=== PATIENT | female | born 1945 | race Caucasian/White ===

== ENCOUNTER 2022-05-26 10:56 | Outpatient (CLI) | payer MEDICARE, OTHER, SELFPAY ==
[2022-05-26 11:44] LABS: Hemoglobin A1C* 5.6 % (0-5.6)
[2022-05-26 12:08] LABS: Albumin* 4.5 g/dL (3.3-5.0); Chloride* 107 mmol/L (96-114); Sodium* 141 mmol/L (135-149)
[2022-05-26 12:09] LABS: Potassium* 5.1 mmol/L (3.6-5.1)
[2022-05-26 12:10] LABS: Cholesterol* 218 mg/dL (90-199)
[2022-05-26 12:11] LABS: Alanine Aminotransferase* 29 U/L (4-35); Alkaline Phosphatase* 65 U/L (40-150); Aspartate Amino Transferase* 23 U/L (12-35); Bilirubin Total* 0.4 mg/dL (0.1-1.5); Blood Urea Nitrogen* 20 mg/dL (7-30); Calcium* 9.4 mg/dL (8.4-10.6); Carbon Dioxide* 29 mmol/L (20-32); Creatinine* 0.8 mg/dL (0.5-1.5); Estimated Glomerular Filt Rate 77 ml/min; Glucose* 96 mg/dL (60-115); Triglycerides* 79 mg/dL (40-149)
[2022-05-26 12:12] LABS: HDL Cholesterol* 69 mg/dL (>=50); LDL Cholesterol Calculated 133 mg/dL (<100)
[2022-05-26 12:21] LABS: Vitamin D 25 Hydroxy* 40 ng/mL (30-80)
== END 2022-05-26 10:57 | disposition home or self-care (01) ==
PROVIDERS: PCP Family Medicine; Visit Provider Family Medicine
DX: R73.01 Impaired fasting glucose (principal); M85.80 Other specified disorders of bone density and structure, unspecified site; E78.5 Hyperlipidemia, unspecified; M25.50 Pain in unspecified joint; Z79.1 Long term (current) use of non-steroidal anti-inflammatories (NSAID)
CPT/HCPCS: 80053; 80061; 82306; 83036; 86617; 86618

== ENCOUNTER 2022-07-19 08:52 | Outpatient (CLI) | payer MEDICARE, OTHER, SELFPAY ==
--- NOTE | 2022-07-19 09:15 | MR_ITS ---
[facility] [address] [facility] [address] Phone:?[phone] Fax:?[phone] Referring Physician Information: Flakito aGlloway M.D. [address] [place] [address] Phone:?[phone] Fax:?[phone] Patient:Conrado Barbosa D.O.B:?1945 Sex:?Female Phone:? [facility] MRN:?[id number] Exam Date:?07/19/2022 ? EXAM: MRI of the LEFT KNEE, without contrast CLINICAL: Left knee pain. Evaluate for medial meniscal root tear. COMPARISONS: X-rays dated 05/26/2022. TECHNICAL: MR sequences of the left knee: sagittals: PD, PDFS coronals: PD, T2FS axials: PD, PDFS SEDATION: None. CONTRAST: None. FINDINGS: Ligaments: ACL: Intact and unremarkable. PCL: Intact and unremarkable. MCL: Intact and unremarkable. LCL: Intact and unremarkable. Posterolateral corner: Popliteus, biceps femoris, iliotibial band, and the popliteofibular ligament appear intact. Posteromedial corner: Semimembranosus, pes anserine tendons and posterior oblique ligament appear intact. Extensor mechanism: Patellar tendon: Intact, without tendinopathy. Quadriceps tendon: Intact, without tendinopathy. Retinacula: Medial and lateral retinacula are intact. Fat pads: Unremarkable infrapatellar Hoffa's, quadriceps and prefemoral fat pads. Patellofemoral joint: Patella: There is full-thickness chondral loss involving the medial patellar facet and patellar median ridge with mild underlying subchondral reactive edema. High-grade/full-thickness chondral loss also involves the far inferior patella. Trochlea: Mild heterogeneity and chondral thinning involving the trochlea. Medial compartment: Medial meniscus: There is complex tearing of the body and posterior horn extending into the posterior root as seen on sagittal series 6 images 8-14 and coronal series 8 image 17-22. There is approximately 5 mm of medial and 6 mm of inferior displacement of torn body segment meniscal tissue into the medial gutter. Medial cartilage: Grade 3 chondral thinning is seen to involve the far peripheral weightbearing medial femoral condyle. Mild chondral thinning involving the remainder of the medial compartment. Lateral compartment: Lateral meniscus: No evidence of discrete meniscal tear or meniscal displacement. Lateral cartilage: There is heterogeneity of the lateral tibial plateau cartilage with deep chondral fissuring involving the central lateral tibial plateau cartilage. Lateral femoral condyle cartilage is preserved. Knee joint: Effusion: Small left knee effusion. Intra-articular bodies:?No convincing bodies identified. Popliteal cyst: Small. Bones: No suspicious bone marrow signal alteration or fracture line. IMPRESSION: 1. Tearing of the medial meniscus as above, with displacement of torn body segment meniscal tissue into the medial gutter. 2. 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 3. Small joint effusion and small popliteal cyst. JCZ Electronically signed on 07/19/2022 2:13:00 PM by Sb Garcia D.O.
== END 2022-07-19 08:53 | disposition home or self-care (01) ==
LOC: MRI 08:54
PROVIDERS: PCP Family Medicine; Visit Provider Orthopaedic Surgery
DX: M25.562 Pain in left knee (principal); S83.207A Unspecified tear of unspecified meniscus, current injury, left knee, initial encounter; M94.262 Chondromalacia, left knee; M25.462 Effusion, left knee; M71.22 Synovial cyst of popliteal space [Baker], left knee
CPT/HCPCS: 73721

== ENCOUNTER 2022-08-11 10:04 | Outpatient (CLI) | payer MEDICARE, OTHER, SELFPAY ==
--- NOTE | 2022-08-11 10:15 | CRLHL7_ITS ---
For Patients: As a result of the Century Cures Act, medical imaging exams and procedure reports are released immediately into your electronic medical record. You may view this report before your referring provider. If you have questions, please contact your health care provider. BILATERAL SCREENING MAMMOGRAM WITH COMPUTER-AIDED DETECTION TECHNIQUE: CC and MLO views were obtained. These mammographic images have been obtained using full-field digital technique. These mammographic images were interpreted with the benefit of computer-aided detection. COMPARISON FILM: 09/25/2020, 05/05/2017, 01/11/2019. FINDINGS: There are scattered areas of fibroglandular density IMPRESSION: There is no radiographic evidence for malignancy. ASSESSMENT: BI-RADS Category 1: Negative RECOMMENDATION: Routine screening mammogram in 1 year. A lay language report of this examination will be provided to the patient. Job Puckett M.D. Diagnostic Radiologist [email or web address] MARYSOL/Dictated by: Job Puckett MD @ 08/11/2022 11:47:00 AM (Electronically Signed)
== END 2022-08-11 10:05 | disposition home or self-care (01) ==
LOC: MAMMO 10:04
PROVIDERS: PCP Family Medicine; Visit Provider Family Medicine
DX: Z12.31 Encounter for screening mammogram for malignant neoplasm of breast (principal)
CPT/HCPCS: 77067

== ENCOUNTER 2022-09-08 14:30 | Outpatient (RCR) | payer MEDICARE, OTHER, SELFPAY ==
--- NOTE | 2022-07-07 16:10 | PT.OPEX ---
PT [facility] Eval PT [facility] Out[facility] Eval Start: 07/07/22 13:16 Freq: Status: Active Protocol: Document 07/07/22 13:16 YONY (Rec: 07/07/22 16:01 YONY [id number]) E-signed By Elsa Miranda Physical Therapy Outpatient Evaluation Insurance Information Recert Due Date 10/05/22 Insurance Name Medicare B Medical Diagnosis Cervicalgia Treating Diagnosis Neck pain with mobility limitations that interferes w patient's ability to sleep Referring MD Lyn Bryant MD Subjective Subjective Patient presents to PT for evaluation and treatment for neck pain. She has done PT for her neck previously, which improved her ROM but did not significantly affect her pain. She has continued to do some of the exercises from that PT treatment. She's hoping to improve her pain as well as her ability to hold her head steady. She had a fall in November 2020 in which she fell backwards w/o hitting her head that she feels is related; she had no neck pain before the fall. She now has trouble with riding her stationary bike due to her neck, in addition to knee pain that is preventing her from walking much. She regrets that she is not getting much exercise now; she has historically been a hiker, biker, etc. She has a hard time sleeping due to neck pain, despite trying many different pillows; her neck pain is waking her up 3-4x/ night. She now sleeps on her side with no pillow at all. She has found a position where she cradles her head/neck with her arms, but she is worried about how this will affect her shoulders. When she wakes, her neck is very stiff . She has been trying to make sure she drinks lots of water to help with the arthritis. Her family has noticed a side- to-side head bobble almost like she's nodding off to sleep, which she thinks happens mostly at the end of the day. She thinks it's mostly bobbling to the right. X-ray impression from 05/26/22 : Mild degenerative disc disease C5-C7. Severe facet degeneration on the right at C5-6 and on the left at C4-5. Pain Comments Worst: 5-6/10 (describes as uncomfortable) Best: 1/10 (up and moving around w head in midline) Ags: looking down at iPad or handwork, holding head steady for a long period especially if looking down, rolling over in bed Eases: Advil, Tylenol, getting up and walking around, putting her shoulders back and sitting up tall, taking a break from aggravating activity Occupation retired Preferred Name GUERDA Objective Other/Pertinent Objective Posture: Slightly rounded and elevated shoulders Balance: Able to have good sitting posture when attending to it, tends to lean into backrest and rest into flexion throughout spine Cervical AROM assessed. All motions found to be at least somewhat irritating, with L sidebending and L rotation being the worst initially, but subsequently R rotation seemed to be quite bothersome. Attempted to assess cervical PROM, but pt unable to relax Shoulder AROM assessed and found to be painless and unlimited. However, holding a curling iron for a prolonged period is tiring. Denies numbness/tingling anywhere. MMT screen of B UEs performed and found to be grossly 5/5. Abduction created bilateral neck pain in upper trap region . Special tests performed and found to be negative unless otherwise noted: Spurling Deep neck flexor endurance test (40 sec is normal): 50 sec (R sided pain w lift and twist R) Upper limb tension test on R Manual cervical traction trialed and found to provide minimal relief of neck pain, but it was unclear whether this was from distraction or from pressure to neck/ paraspinals Tenderness to palpation: R paraspinals at approximately the C3/4 level. No tenderness to B occipitals, upper traps, pecs, scalenes, or SCMs. Patient's pain was quite irritable. Assessment Assessment/Impression Guerda presents to PT today with complaints of neck pain and stiffness with occasional head bobbles that happen later in the day. Patient reports that she fell backward from standing in November of 2020; to avoid hitting her head, she worries that she strained her neck muscles or ligaments. She has had neck pain ever since and was very concerned about the findings on a recent xray. Notable findings today include limitations and pain/ stretch in all cervical motions, good strength and endurance in deep neck flexors , and negative special tests for radiculopathy. Patient was tender on palpation to her R paraspinals at approximately the C3/4 level, and pointed to her bilateral paraspinals and upper traps throughout today' s session as the source of pain/stretching sensation. PT today focused on evaluating the patient's strength and mobility, educating her about the x-ray findings, and instructing her in a preliminary home exercise program. Patient will benefit from continued physical therapy to build strength and mobility, gain confidence with independent management of her condition, and improve her ability to participate in her preferred activities. Cosigned: [place] [address] Primary Functional Limitations Interrupted sleep Difficulty with looking at iPad, cross-stitch Plan of Care Rehabilitation Potential Good Physical Therapy Goals In 6-8 weeks: 1. Patient will be independent with home exercise program to promote independent management of symptoms. 2. Patient will report waking 2 or fewer times per night due to neck pain. 3. Patient will rate her pain at its worst as a 4/10 or less when performing recreational activities such as cross- stitch. 4. Patient will report a 2+ or higher on the Global Rating of Change Scale. Coordination/Communication With Referral Source Treatment Plan/Direct Interventions Electrical Stimulation,Heat, Ice/Cold/Vasopneumatic,Joint Mobilization,Manual Therapy, Neuromuscular Re-ed,Self-Care/ Home Management,Therapeutic Activities,Therapeutic Exercises,Ultrasound Frequency/Duration 1x/week for up to 8 weeks Patient Will Be Discharged From Therapy Completion of LTG(s), Independent w/HEP Evaluation Billing Untimed Code Treatment Minutes 43 PT Eval No Charge No Complexity Moderate Certification Information Initial Certification Date 07/07/22 Ending Certification Date 10/05/22 Provider Signature Shows Agreement With POC & Medical Necessity Physician Signature & Date Requested Please Sign/Date Here Physician Comment/Change : Physician NPI Number # Student Supervision Licensed PT Directed/Approved Treatment, Reviewed POC with Patient,Made Contact with Patient, Participated in Treatment Documentation Reviewed By Support Specialist Yes
== END 2022-11-22 09:21 | disposition home or self-care (01) ==
PROVIDERS: PCP Family Medicine; Visit Provider Family Medicine
DX: M54.2 Cervicalgia (principal); G89.29 Other chronic pain; Z74.09 Other reduced mobility; G47.8 Other sleep disorders; Z51.89 Encounter for other specified aftercare
CPT/HCPCS: 97110; 97112; 97140; 97162; 97530

== ENCOUNTER 2022-09-09 06:17 | Day surgery (SDC) | payer MEDICARE, OTHER, SELFPAY ==
[2022-09-09] VITALS (11 sets, daily range): BP systolic 110–144; BP diastolic 55–82; PULSE 55–75; RESP 16–20; TEMP 36.1–37.2; O2SAT 92–100; BMI 30.4
--- NOTE | 2022-09-09 06:33 | SUR.PREOP ---
home covid test negative
[2022-09-09] MEDS: LACTATED RINGERS 1000 ML 1,000 ML 100 ML IV ×2 (07:00→08:40)
[2022-09-09] MEDS: SODIUM CHLORIDE 0.9 % (FLUSH) 10 ML SYRINGE IVF (07:01)
[2022-09-09] MEDS: CEFAZOLIN 2 GM INJ IVP (07:50)
--- NOTE | 2022-09-09 08:24 | PM.ORPRC ---
Procedure Note Date of procedure: 09/09/22 Procedure: PREOPERATIVE DIAGNOSIS: Left knee medial meniscus tear POSTOPERATIVE DIAGNOSIS: Left knee medial meniscus tear NAME OF OPERATION: Left knee arthroscopic partial medial meniscectomy SURGEON: Flakito Galloway MD WEBSPHERE PORTAL DEVELOPER: ALEXANDRA Shannon ANESTHESIA: Spinal ESTIMATED BLOOD LOSS: 0 mL COMPLICATIONS: None SPECIMENS: None DRAINS: None PREOPERATIVE ANTIBIOTICS: Ancef 2 gram INDICATIONS: The patient is a 76-year-old with a history of left knee medial pain. MRI scan is consistent with a medial meniscus tear. Despite appropriate nonoperative management, including activity modification, antiinflammatories, [id number] pain medication, bracing, physical therapy, and injections they continue to have pain and disability. Operative intervention was offered. The risks, benefits and expected outcomes were discussed in detail. These included but were not limited to: Infection, bleeding, injury to blood vessel or nerve, venous thromboembolism. All questions were answered to their satisfaction. PROCEDURE: Spinal anesthesia was administered. The patient was placed supine on the operating room table. The left lower extremity was prepped and draped in the usual sterile fashion. The limb was exsanguinated with the Westley bandage. The pneumatic tourniquet was inflated to 300 mmHg. A standard anterolateral portal was established. The arthroscope was introduced. The working portal was established anteromedially. Diagnostic arthroscopy was performed with findings as follows: The suprapatellar pouch is normal. Articular surface on the patella shows diffuse grade 1/2 change. Articular surface on the trochlea shows diffuse grade 2 change. The medial gutter is normal. The medial compartment shows diffuse grade 2 change on the medial femoral condyle and medial tibial plateau. The medial meniscus has a complex degenerative tear of the midbody, into the posterior horn. This primarily consists of a parrot-beak tear with an anteriorly based unstable flap. There is undersurface horizontal cleavage tearing of the posterior horn. The notch shows the ACL to be intact. The lateral compartment shows normal articular cartilage on the lateral femoral condyle and lateral tibial plateau. The lateral meniscus is normal. The lateral gutter is normal. The posterior horn of the medial meniscus was debrided to a stable base using a combination of baskets and shaver through both portals. Arthroscopic instruments were removed, the portal sites were Steri-Stripped closed, the knee was infiltrated with 30 mL of 0.25% Marcaine without epinephrine. A dry dressing was applied, the tourniquet was released. Sponge and needle counts were correct x 2. The patient tolerated the procedure well. There were no apparent complications. They were carefully transferred to the hospital bed and taken to the postanesthesia care unit in satisfactory condition. PLAN: The patient will be discharged to home. They may weightbear as tolerates. Range of motion will be unrestricted. They will follow up in the office next week for a wound check.
[2022-09-09] MEDS: BUPIVACAINE 0.25% 30 ML INJECTION (08:26)
--- NOTE | 2022-09-09 08:36 | W.ANESCHARGE ---
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
[2022-09-09] MEDS: OxyCODONE/APAP 5-325 TABLET 1 TAB PO (10:00)
== END 2022-09-09 10:13 | disposition home or self-care (01) ==
PROVIDERS: PCP Family Medicine; Visit Provider Orthopaedic Surgery
PROC: (CPT 29870; principal; 2022-09-09 07:30)
DX: M23.222 Derangement of posterior horn of medial meniscus due to old tear or injury, left knee (principal)
CPT/HCPCS: 29881; 01400; 99100; A9270; J0690; J2250; J2704; J3010; J3490; J7120

== ENCOUNTER 2022-10-07 12:18 | Outpatient (CLI) | payer MEDICARE, OTHER, SELFPAY ==
--- NOTE | 2022-10-07 13:51 | W.ANESCHARGE ---
Anesthesia Charges Start Date/Time Anesthesia Start Date: 10/07/22 Anesthesia Start Time: 13:10 Stop Date/Time Anesthesia Stop Date: 10/07/22 Anesthesia Stop Time: 13:45
--- NOTE | 2022-10-07 14:22 | W.ANESCHARGE ---
Anesthesia Charges Start Date/Time Anesthesia Start Date: 10/07/22 Anesthesia Start Time: 13:10 Stop Date/Time Anesthesia Stop Date: 10/07/22 Anesthesia Stop Time: 13:45 Summary Extremes of Age - Over 70 or under 1: MDA
== END 2022-10-07 12:19 | disposition home or self-care (01) ==
PROVIDERS: PCP Family Medicine; Visit Provider Surgery
DX: Z12.11 Encounter for screening for malignant neoplasm of colon (principal); K63.5 Polyp of colon; K62.1 Rectal polyp; Z86.010 Personal history of colon polyps
CPT/HCPCS: 45385; 811; 88305; 99100; J2704

== ENCOUNTER 2023-04-20 08:55 | Outpatient (CLI) | payer MEDICARE, OTHER, SELFPAY ==
--- NOTE | 2023-04-20 09:00 | CRLHL7_ITS ---
For Patients: As a result of the Cures Act, medical imaging exams and procedure reports are released immediately into your electronic medical record. You may view this report before your referring provider. If you have questions, please contact your health care provider. Indication: Left shoulder pain. Technique: Left shoulder 3 views. Comparison: None. Findings: Deformity of the humeral head at the greater tuberosity noted. Spurring at the acromioclavicular joint. Possible lucency associated with the greater tuberosity. No glenohumeral dislocation. Intact visualized ribs. Impression: Mildly displaced fracture of the greater tuberosity. Possible underlying bony lesion. CT recommended. Dictated by Job Puckett MD @ 04/20/2023 10:13:14 AM (Electronically Signed)
== END 2023-04-20 08:56 | disposition home or self-care (01) ==
PROVIDERS: PCP Family Medicine; Visit Provider Family Medicine
DX: M25.512 Pain in left shoulder (principal); T14.8XXA Other injury of unspecified body region, initial encounter
CPT/HCPCS: 73030

== ENCOUNTER 2023-05-24 07:31 | Outpatient (CLI) | payer MEDICARE, OTHER, SELFPAY ==
--- OUTSIDE RECORDS SUMMARY | 2023-05-26 12:19 | XMS_ITS | Continuity of Care Document ---
Author Name Unknown Organization [facility] Address [address] [place] [address] Phone Care Team Providers Care Driller Hand Name Role Phone Duy DUKES, PhD, Redd Unavailable Unavai lable Allergies, Adverse Reactions, Alerts Substance Reaction Status Criticality No Known Allergies Active No Inform ation Medications Medication Instructions Dosage Effective Dates (start - stop) Status Comments ADVAIR HFA (unknown strength) Not Available - Active Procedures Procedure Date Office/Outpatient Visit,[facility] [place] 2022 Advance Directives Directive Yes / No Effective Date File Name No Information Encounters Encounter Description Practice Location Reason(s) For Visit Diagnoses Date Provider Providers Copied on Encounter [facility], [address], [place], [place], [id number], [place] tel:[phone] No Information Duy Rainey. [facility] [place], [address] [facility] [address], [place], [address], [place]. tel:[phone] Office/Outpat ient Visit,[facility], [address], [place], [place], [id number], [place] tel:[phone] [facility] [place] [facility] Duy Rainey. [facility], [address], [place], [address], [place]. tel:[phone] Referring Provider: Lyn Almodovar[address], [address]. tel:[phone] Family History Family Member Type Diagnosis Age At Onset No Information Payers Payer name Insurance type Covered republican ID Authoriza titaylor(s) [facility] [place] [id number] Social History Type Description Quantity Date Captured Comments Sex Female Smoking Status No Information Chief Complaint And Reason For Visit No Information Reason For Referral Reason For Referral No Information History Of Present Illness Encounter Date Complaint History Of Prese nt Illness No Information Functional Status Date Functional Assessmen t No Information Instructions Date Instruction Additional Infor mation No Information Assessments Type Assessment Date No Information Patient Care Teams Name Effective Dates (start - stop) Status Members No Information
== END 2023-05-24 07:32 | disposition home or self-care (01) ==
LOC: NFLDREF 05-26 12:17
PROVIDERS: PCP Family Medicine; Referring Provider Family Medicine; Visit Provider Family Medicine
DX: E78.2 Mixed hyperlipidemia (principal); M19.90 Unspecified osteoarthritis, unspecified site; M85.80 Other specified disorders of bone density and structure, unspecified site
CPT/HCPCS: 80053; 80061; 82306

== ENCOUNTER 2023-07-06 14:17 | Outpatient (CLI) | payer MEDICARE, OTHER, SELFPAY ==
--- OUTSIDE RECORDS SUMMARY | 2023-07-06 14:21 | XMS_ITS | Continuity of Care Document ---
Author Name Unknown Organization [facility] Address [address] [place] [address] Phone Care Team Providers Care Pacu Rn Name Role Phone Duy DUKES, PhD, Redd Unavailable Unavai lable Allergies, Adverse Reactions, Alerts Substance Reaction Status Criticality No Known Allergies Active No Inform ation Medications Medication Instructions Dosage Effective Dates (start - stop) Status Comments ADVAIR HFA (unknown strength) Not Available - Active Procedures Procedure Date Office/Outpatient Visit,[facility] [place] Directives Directive Yes / No Effective Date File Name No Information Encounters Encounter Description Practice Location Reason(s) For Visit Diagnoses Date Provider Providers Copied on Encounter [facility], [address], [place], [place], [id number], [place] tel:[phone] No Information Duy Rainey. [facility] [place], [address] [facility] [address], [place], [address], [place]. tel:[phone] Office/Outpat ient Visit,[facility], [address], [place], [place], [id number], [place] tel:[phone] [facility] [place] [facility] Duy Rainey. [facility], [address], [place], [address], [place]. tel:[phone] Referring Provider: Lyn Almodovar[address], [address]. tel:[phone] Family History Family Member Type Diagnosis Age At Onset No Information Payers Payer name Insurance type Covered green party ID Authoriza titaylor(s) [facility] [place] [id number] Social History Type Description Quantity Date Captured [...]
--- NOTE | 2023-07-06 14:30 | CRLHL7_ITS ---
For Patients: As a result of the Century Cures Act, medical imaging exams and procedure reports are released immediately into your electronic medical record. You may view this report before your referring provider. If you have questions, please contact your health care provider. DXA BONE MINERAL DENSITY STUDY Reason for exam: Osteopenia. Current height (in): 64. Weight (lb): 175. Menopause age: 54. Ethnicity: White. 1. Have you had a previous hip or vertebral fracture? No. 2. Have you had any fractures during your adult life which did not result from significant trauma (e.g., auto accident)? Yes. 3. Did either of your parents have a hip fracture? No. 4. Do you smoke? No. 5. Have you ever taken Glucocorticoids? Yes. 6. Do you have rheumatoid arthritis? No. 7. Do you have secondary osteoporosis? No. 8. Do you drink 3 or more alcoholic drinks per day? No. 9. Are you being treated for osteoporosis? No. 10. Have you ever taken any of the following medications: Actonel, Evista, Fosamax, Miacalcin, Reclast, Boniva, Forteo, HRT (i.e. estrogen/hormone therapy), Protelos, Prolia, Vitamin D, Calcium, other ??? please specify. ANSWER: Yes, Vitamin D, calcium. 11. Do you have any of the following medical conditions: Anorexia or bulimia, asthma or emphysema, end stage renal disease, hyperparathyroidism, any seizure disorders, cancer, inflammatory bowel diseases, hysterectomy, other ??? please specify. ANSWER: Yes, asthma or emphysema, osteopenia. 12. What was your maximum height (inches)? 64. 13. Do you perform weight bearing exercise regularly? Yes. 14. Do you regularly consume dairy products? Yes. 15. Do you drink caffeinated beverages? Yes. 16. At what age did your period start? 17. 17. Are you premenopausal? No. 18. How many full term pregnancies have you had? 2. 19. Have you ever missed your period for more than 6 months in a row (not including or menopause)? No. TECHNIQUE: Bone mineral density study was performed using the [employer]. FINDINGS: The results of the study expressed as bone mineral density (BMD) are as follows: Lumbar spine L1 to L4: BMD: 0.975 g/cm2. T-score: -0.7. Z-score: 1.8. Neck Left: BMD: 0.658 g/cm2. T-score: -1.7 . Z-score: 0.4. Right: BMD: 0.654 g/cm2. T-score: -1.8 . Z-score: 0.4. Total Left: BMD: 0.888 g/cm2. T-score: -0.4. Z-score: 1.4. Right: BMD: 0.855 g/cm2. T-score: -0.7. Z-score: 1.1. IMPRESSION: Osteopenia. *Comparison exams done prior to 11/2019 were performed on different unit, [employer]. COMPARISON: Compared with scan of 04/08/2021, the bone mineral density has decreased by 0.2 percent at the spine and decreased by 0.5 percent at the hip. FRAX 10-year Fracture Risk Major Osteoporotic Fracture: 27 percent Hip Fracture: 6.7 percent Reported Risk Factors: [place] () Neck BMD=0.654, BMI=30.0, previous fracture, glucocorticoids Job Puckett M.D. Diagnostic Radiologist [email or web address] SP/Dictated by: Job Puckett MD @ 07/06/2023 3:49:00 PM (Electronically Signed)
== END 2023-07-06 14:18 | disposition home or self-care (01) ==
LOC: RAD 14:20
PROVIDERS: PCP Family Medicine; Visit Provider Family Medicine
DX: M85.80 Other specified disorders of bone density and structure, unspecified site (principal); M85.89 Other specified disorders of bone density and structure, multiple sites
CPT/HCPCS: 77080

== ENCOUNTER 2023-08-26 09:00 | Outpatient (RCR) | payer MEDICARE, OTHER, SELFPAY ==
--- NOTE | 2023-04-05 17:01 | PT.OPEX ---
PT [facility] Outpatient Eval PT [facility] Outpatient Eval Start: 04/05/23 13:00 Freq: Status: Active Protocol: Document 04/05/23 13:00 AMS (Rec: 04/05/23 16:57 AMS [id number]) E-signed By Jina Willard PT Physical Therapy Outpatient Evaluation Insurance Information Recert Due Date 06/29/23 Insurance Name Medicare B Medical Diagnosis Non-displaced fracture of greater tuberosity of left humerus 01/22/23 Left rotator cuff tendinitis Left AC joint arthritis Treating Diagnosis Left shoulder stiffness Left shoulder pain Muscle weakness Referring MD Lyn Bryant Subjective Subjective She fractured arose in January by tripping over an object in a dark house. She fractured the left humerus. This was at her summer cabin in [place] . She did see on Ortho who did do x-ray and MRI. They had told her she does not need any surgery. She has been going to physical therapy and it is slowly getting better. She would like to have a referral to physical therapy. She did not have a follow-up with orthopedic surgeon there. Patient, left-hand dominant, presents to physical therapy 10 weeks s/p left greater tuberosity humeral fracture after a fall onto an outstretched arm on 01/22/23. She tripped on a potting bench while carrying two plants, and fell onto her left arm. She did PT in [place] for 8 visits, as this was where she was living at her cabin until 1.5 weeks ago. This was very helpful thus far, but she is worried she is backsliding since not going for 1.5 weeks due to moving. Still has not recovered her full range of motion/strength, noting functional limitations/ aggravation with lifting, reaching, carrying, and cleaning. MRI was done recently, which patient states showed partial tear of supraspinatus, biceps tendon irritation, and healing fracture WNL. Easing factors include ice after exercises, as well as heat and rest. She takes OTC pain meds as needed, which helps. Also notes scapular retractions decrease her pain along with dangling her left arm over edge of bed on her side. Goals are decreased pain, return to yoga , gadening, and housework, and walking the dog, which she does daily but has had to adapt and use right UE. She enjoys sewing and knitting as well as staying busy, although retired. Previously doing yoga 3x/week, but has not since injury. PMH significant for asthma and cervical pain; saw Aster previously here for her neck pain. She is wondering what exercises she can safely do. Pt notes she has had 2 other falls this year when she wasn't paying attention. Not worried about her balance. Current HEP: supine AAROM flexion and press, ER with dowel, scapular retractions, AAROM standing with dowel, ER with 1-2 lb weight, isometric IR/ER walkouts with band, shoulder punches supine, rows in standing, valerio system x 100 reps each, wall slides - all 2x/day for 10 reps. Pain Comments 0/10 at rest, 6/10 at worst Date of Last Physician Visit 04/01/23 Current Work Status Retired Preferred Name Guerda Precautions Treatment Precautions/Contraindications Left humeral fx 01/22/23, asthma No other restrictions Objective Other/Pertinent Objective CERVICAL AROM Flexion/extension/sidebending: WFL Rotation right: 45 deg Rotation left: 50 deg SHOULDER AROM (standing/supine ) Flexion: R 170 L 130/130* Abduction: R 170 L 90/160* Internal Rotation: R T4 L / L5 * External Rotation (0 deg abd): R 60 L 40* * limited by pain lateral shoulder SHOULDER PROM Same as supine AROM with pain end range NECK/SHOULDER MMT: Shoulder flexion: R 5/5 L 4/5 Shoulder abduction: R 5/5 L 4/ 5 Shoulder External Rotation at 0 deg: R 5/5 L 4/5 Shoulder Internal Rotation at 0 deg: R 5/5 L 4/5 Elbow flexion: R 5/5 L 4/5 Elbow extension R 5/5 L 5/5 SCAPULAR MECHANICS Did not assess Automobile Service Writer strength: Grossly within normal limits SPECIAL TESTS Deferred JOINT MOBILITY/PALPATION Mild tenderness to palpation over anterior lateral shoulder /short head of biceps insertion TX: Patient was educated on anatomy, physiology as it relates to current condition and HEP with use of handout/ [employer]. Patient verbalizes understanding and agrees with POC/goals Patient was instructed in the following exercises to improve strength, tissue tolerance, and/or mobility with verbal/ tactile cues as needed: Access Code: [email or web address] URL: [email or web address] Date: 04/05/2023 Prepared by: Jina Willard Program Notes Comfortable range of motion - no need to push past pain! Exercises - Standing shoulder flexion wall slides - 1 x daily - 7 x weekly - 3 sets - 10 reps - Standing Shoulder Abduction AAROM with Dowel - 1 x daily - 7 x weekly - 3 sets - 10 reps - Sidelying Shoulder Abduction - 1 x daily - 7 x weekly - 3 sets - 10 reps - Standing Shoulder External Rotation AAROM with Dowel - 1 x daily - 7 x weekly - 3 sets - 10 reps Patient to bring HEP list from previous PT at next session. Functional Test Performed & Score Quick DASH: 56.8/100 = 56.8% Assessment Assessment/Impression Pt is a 77 -year-old female who presents 10 weeks s/p left greater tuberosity humeral fracture due to FOOSH injury after transfer of care from her physical therapist in [place] (moved back from [facility] 1.5 weeks ago). MRI also reportedly showing rotator cuff/biceps involvement/ partial supraspinatus tear. On exam, patient also demonstrates notable objective findings including limited ROM due to pain and decreased strength, leading to difficulties with housework, gardening, walking her dog, playing piano, reaching, lifting, sleeping, and carrying. Especially demonstrates weakness with active shoulder abduction due to nature of nondisplaced fracture location. Received previous physical therapist's notes for continuity of care. Patient is appropriate for skilled physical therapy services to address the above deficits. Pt was agreeable with plan of care and goals established. Primary Functional Limitations housework, gardening, walking her dog, playing piano, reaching, lifting, sleeping, and carrying Plan of Care Rehabilitation Potential Good Physical Therapy Goals In 2 sessions: Pt will demonstrate consistent HEP compliance to ensure progress in reaching established goals during course of care. In 8-10 sessions: Pt will demonstrate full and pain-free AROM of shoulder for improved ability to perform ADLs. Pt will report <2/10 pain with all activities for improved ability to perform recreational leisure activities. Pt will sleep, including on shoulder, with waking 0-1 times per night. Pt will demonstrate >4/5 strength for all major muscle groups of upper extremity for improved ability to return to yoga class. Coordination/Communication With Referral Source Treatment Plan/Direct Interventions Joint Mobilization,Manual Therapy,Neuromuscular Re-ed, Self-Care/Home Management, Therapeutic Activities, Therapeutic Exercises Frequency/Duration 1x/week for 8-10 sessions Patient Will Be Discharged From Therapy Completion of LTG(s), Independent w/HEP, Independently Progressing Evaluation Billing Untimed Code Treatment Minutes 30 Complexity Moderate Certification Information Initial Certification Date 04/05/23 Ending Certification Date 06/29/23 Provider Signature Shows Agreement With POC & Medical Necessity Physician Signature & Date Requested Please Sign/Date Here Physician Comment/Change : Physician NPI Number #
--- NOTE | 2023-07-12 12:21 | PT.OPDNX ---
PT [facility] Outpatient Daily Note PT [facility] Outpatient Daily Note Start: 04/05/23 13:00 Freq: Status: Active Protocol: Document 07/12/23 08:12 AMS (Rec: 07/12/23 12:21 AMS [id number]) E-signed By Jina Willard, PT PT OP Daily Progress Note Visit Information Note Type Daily Note,Recert/Progress Note Visit Number [id number] Insurance Information Recert Due Date 09/22/23 Insurance Name Medicare B Medical Diagnosis Non-displaced fracture of greater tuberosity of left humerus 01/22/23 non-operative Left rotator cuff tendinitis Left AC joint arthritis Treating Diagnosis Left shoulder stiffness Left shoulder pain Muscle weakness Referring MD Lyn Bryant Subjective Subjective Patient states her shoulder has been doing well. She has done 2 yoga classes this week, which went well overall but had more difficulty with downward dog/full body planks due to feeling of muscle aching in left shoulder, along with minor pain noted with T' s and goal post arm stretches on her back. She states she was able to carry her dog's food bag up the stairs for the first time since injury using both arms. She is off all pain meds and has been for some time now. Pain Comments 0/10 at rest, 2/10 at worst Preferred Name Guerda Precautions Treatment Precautions/Contraindications Left humeral fx 01/22/23, asthma, osteopenia, hyperlipidemia No other restrictions Home Exercise Home Exercise Comments Access Code: [email or web address] URL: [email or web address] Date: 07/12/2023 Prepared by: Jina Willard Program Notes Minimum of 150 minutes of moderate intensity aerobic exercise (walking, biking, swimming, hiking ) per week, along with 2-3 days of resistance training for full body major muscle groups for strengthening (legs, hips, back, abdomen, chest, shoulders, and arms). It may take time to gradually build up to the recommended levels as appropriate.Downward dog to cobra, 2 x 5 reps, 3x/week Exercises - Standing Shoulder Internal Rotation Stretch with Towel - 1 x daily - 7 x weekly - 2 sets - 15-20 reps - 3-5 seconds hold - Shoulder Internal Rotation with Resistance - 1 x daily - 4 x weekly - 2 sets - 10 reps - blue hold - Standing Single Arm Shoulder Abduction with Resistance - 1 x daily - 4 x weekly - 2 sets - 10 reps - green band - Standing Single Arm Shoulder External Rotation in Abduction with Anchored Resistance - 1 x daily - 4 x weekly - 2 sets - 10-12 reps - red band hold - Standing Shoulder Horizontal Abduction with Resistance - 1 x daily - 4 x weekly - 2 sets - 10 reps - Single Arm Overhead Triceps Extension - 1 x daily - 4 x weekly - 2 sets - 8-10 reps - green band or 5 lbs weight - Standing Bicep Curls with Resistance - 1 x daily - 4 x weekly - 2 sets - 10 reps - 8 lbs or double blue hold - Standing Bent Over Shoulder Row - 1 x daily - 4 x weekly - 2-3 sets - 10-12 reps - 8 lbs weight Objective Other/Pertinent Objective SHOULDER AROM (standing) Flexion: R 150 L 150 Abduction: R 165 L 165 Internal Rotation: R T4 L: L2 w/ assist from R External Rotation (0 deg abd): R 55 L 55 External rotation (90 deg abd) : 82 R, 75 L Previously: NECK/SHOULDER MMT: Shoulder flexion: R 5/5 L 4+/5 Shoulder abduction: R 5/5 L 4+ /5 Shoulder External Rotation at 0 deg: R 5/5 L 4+/5 Shoulder Internal Rotation at 0 deg: R 5/5 L 4+/5 Elbow flexion: R 5/5 L 4+/5 Elbow extension R 5/5 L 5/5 JOINT MOBILITY/PALPATION Mild tenderness to palpation over anterior lateral shoulder /short head of biceps insertion Functional Test Performed & Score Quick DASH: 56.8/100 = 56.8% ( initial eval) Patient Instructed in Risks/Benefits Yes Therapeutic Exercise Therapeutic Exercise Minutes (minutes) 30 Therapeutic Exercise: To Restore Patient was instructed in the Functional Status following exercises to improve strength, tissue tolerance, and/or mobility with verbal/ tactile cues as needed: - Pulleys, flexion and abduction, x 3 min - Standing ER stretch at 90 deg abd, 1 x 30 sec - Bent over rows, 6 lb DBs, 1 x 12; 7 lbs, 1 x 12 reps; 8 lbs, 1 x 12 reps - ER at 90 deg abd, 2 x 15, yellow, red TB - Banded horizontal abduction with blue TB, 1 x 15 reps - Quadruped shoulder taps 1 x 10 reps B - Quadruped unilateral shoulder plank 2 x 30 sec L, 1 x 30 R - Reviewed HEP, answered pt questions, reviewed pt progress Therapeutic Activity Therapeutic Activity Minutes (minutes) 8 Therapeutic Activities Comments -Tennis ball throws at target to simulate throwing chucket for dog 1 x 15 reps -ER at 90 deg abd isometric carries, 5 lbs, 4 x 50 ft -Downward dog to cobra pose, 2 x 5 reps Treatment Minutes Timed Code Treatment Minutes 38 Total Treatment Time 38 Billing Units Therapeutic Activity Units 1 Therapeutic Exercise Units 2 Assessment/Impression Assessment/Impression Pt is 24.5 weeks s/p left proximal humeral fracture and is nearing her baseline level of function in terms of strength and mobility. Pain is now intermittent and decreased in severity/ frequency. Range of motion is full and pain-free with exception of decreased internal rotation to L2, although this is improving. However, patient continues to be limited in activities such as yoga, throwing the chucket for her dog, and carrying heavier objects due to decreased strength of involved shoulder, although this is improving. She has made great progress in her range of motion, pain levels and function, activity tolerance, and rotator cuff/scapular strength since starting therapy, but will continue to benefit from skilled PT services to facilitate full return to desired daily activities. Plan of Care Physical Therapy Goals In 2 sessions: Pt will demonstrate consistent HEP compliance to ensure progress in reaching established goals during course of care. MET In 8-10 sessions: Pt will demonstrate full and pain-free AROM of shoulder for improved ability to perform ADLs. MET, except internal rotation Pt will report <2/10 pain with all activities for improved ability to perform recreational leisure activities.MAKING GOOD PROGRESS Pt will sleep, including on shoulder, with waking 0-1 times per night. MET 06/15/23 Pt will demonstrate >4+/5 strength for all major muscle groups of upper extremity for improved ability to return to yoga class. MAKING GOOD PROGRESS Daily Plan of Care Continue per POC Daily Plan of Care Comments Left UE ROM/strengthening, adapt HEP Recertification Information Initial Certification Date 04/05/23 Recertification Start Date 06/29/23 Recertification Due Date 09/22/23 Reasons to Continue Skilled Therapy Pt is 24.5 weeks s/p left proximal humeral fracture and is nearing her baseline level of function in terms of strength and mobility. Pain is now intermittent and decreased in severity/ frequency. Range of motion is full and pain-free with exception of decreased internal rotation to L2, although this is improving. However, patient continues to be limited in activities such as yoga, throwing the chucket for her dog, and carrying heavier objects due to decreased strength of involved shoulder, although this is improving. She has made great progress in her range of motion, pain levels and function, activity tolerance, and rotator cuff/scapular strength since starting therapy, but will continue to benefit from skilled PT services to facilitate full return to desired daily activities. Rehabilitation Potential Excellent Continued Plan of Care and Interventions Therapeutic activities, therapeutic exercise, neuromuscular re-education, manual therapy Provider Signature Shows Agreement With POC & Medical Necessity
== END 2023-08-26 13:02 | disposition home or self-care (01) ==
PROVIDERS: PCP Family Medicine; Visit Provider Family Medicine
DX: S42.255A Nondisplaced fracture of greater tuberosity of left humerus, initial encounter for closed fracture (principal); M67.814 Other specified disorders of tendon, left shoulder; M13.812 Other specified arthritis, left shoulder; M25.612 Stiffness of left shoulder, not elsewhere classified; M25.512 Pain in left shoulder; M62.81 Muscle weakness (generalized); Z51.89 Encounter for other specified aftercare
CPT/HCPCS: 97110; 97140; 97162; 97530

== ENCOUNTER 2024-04-10 06:22 | Day surgery (SDC) | payer MEDICARE, OTHER, SELFPAY ==
[2024-04-10] VITALS (9 sets, daily range): BP systolic 135–152; BP diastolic 58–91; PULSE 67–87; RESP 18; TEMP 36.4; O2SAT 95–100
[2024-04-10] MEDS: LIDOCAINE 1%-EPI 1:100,000 20 ML INFILTRATI (06:24)
--- OUTSIDE RECORDS SUMMARY | 2024-04-10 06:24 | XMS_ITS | Continuity of Care Document ---
Author Organization [facility] Address [address] [place] [address] Phone Care Team Providers Care Edi Architect Name Role Phone Duy DUKES, PhD, Redd Unavailable Unavai lable Allergies, Adverse Reactions, Alerts Substance Reaction Status Criticality No Known Allergies Active No Inform ation Medications Medication Instructions Dosage Effective Dates (start - stop) Status Comments ADVAIR HFA (unknown strength) Not Available - Active Procedures Procedure Date Office/Outpatient Visit,[facility] [place] 2022 Advance Directives Directive Yes / No Effective Date File Name No Information Encounters Encounter Description Practice Location Reason(s) For Visit Diagnoses Date Provider Providers Copied on Encounter [facility], [address], [place], [place], [id number], [place] tel:[phone] No Information Duy Rainey. [facility] [place], [address] [facility] [address], [place], [address], [place]. tel:[phone] Office/Outpat ient Visit,[facility], [address], [place], [place], [address], [place] tel:[phone] [facility] [place] [facility] Duy Rainey. [facility], [address], [place], [address], [place]. tel:[phone] Referring Provider: Lyn Almodovar[address], [address]. tel:[phone] Family History Family Member Type Diagnosis Age At Onset No Information Payers Payer name Insurance type Covered democrat ID Authoriza titaylor(s) [facility] [place] [id number] Social History Type Description Quantity Date Captured [...]
[2024-04-10] MEDS: BUPIVACAINE 0.25 %/EPI 1:200K 30 ml INJECTION (07:15)
--- NOTE | 2024-04-10 07:51 | PM.ORPRC ---
Procedure Note Date of procedure: 04/10/24 Procedure: Preop diagnosis: Right thumb stenosing tenosynovitis Postop diagnosis: Right thumb stenosing tenosynovitis Procedure: Right thumb A1 valerio release Anesthesia: Local Surgeon: Flakito Galloway MD emergency medicine physician assistant: ALEXANDRA Shannon EBL: 0 mL Complications: None Specimens: None Drains: None Preoperative antibiotics: None Indications: The patient has a history of right thumb painful catching and locking. Despite appropriate non operative management including flexor tendon sheath corticosteroid injections they continue to have symptoms. Operative intervention was recommended. The risks, benefits alternatives and expected outcomes were discussed in detail. These included but were not limited to: Infection, bleeding, injury to blood vessel or nerve, venous thromboembolism. All questions were answered to their satisfaction. The patient was placed supine on the operating room table. Local anesthesia was established with 0.5% Marcaine with epinephrine and 2% lidocaine with epinephrine. The hand was prepped and draped in usual sterile fashion. A transverse incision was made in the MP flexion crease of the thumb. Subcutaneous dissection was taken through the palmar fascia to the flexor tendons with the tenotomy scissors. The A1 valerio was released with the 15 blade and the tenotomy scissors. The edges of the A1 valerio were sharply resected. Active flexion and extension of the thumb shows no catching or locking, no bowstringing of the flexor tendons. The wound was closed with interrupted nylon sutures. A dry dressing was applied the tourniquet was released. Sponge and needle counts were correct x 2. The patient tolerated the procedure well, there were no apparent complications. They were sent to same day surgery in satisfactory condition. Plan: Use of the hand as tolerates. Discontinue the intraoperative dressing on postoperative day 3 and may get the wound wet as tolerates. Follow up in the office in 2 weeks for a wound check and suture removal.
== END 2024-04-10 08:13 | disposition home or self-care (01) ==
LOC: OR 06:22
PROVIDERS: PCP Family Medicine; Visit Provider Orthopaedic Surgery
PROC: (CPT 26055; principal; 2024-04-10 07:15)
DX: M65.311 Trigger thumb, right thumb (principal); M65.841 Other synovitis and tenosynovitis, right hand
CPT/HCPCS: 26055

== ENCOUNTER 2024-06-05 08:13 | Outpatient (CLI) | payer MEDICARE, OTHER, SELFPAY | END 2024-06-05 08:14 | disposition home or self-care (01) | LOC: NFLDREF 06-08 05:39 | PROVIDERS: PCP Family Medicine; Referring Provider Family Medicine; Visit Provider Family Medicine | DX: E78.5 Hyperlipidemia, unspecified (principal); Z79.1 Long term (current) use of non-steroidal anti-inflammatories (NSAID); M85.80 Other specified disorders of bone density and structure, unspecified site; M81.0 Age-related osteoporosis without current pathological fracture | CPT/HCPCS: 80053; 80061; 82306 ==

== ENCOUNTER 2024-06-18 13:45 | Outpatient (RCR) | payer MEDICARE, OTHER, SELFPAY ==
--- NOTE | 2024-05-09 13:37 | OT.OPOE ---
OT Outpatient Ortho Eval OT Outpatient Ortho Eval* Start: 05/08/24 12:32 Freq: Status: Active Protocol: Document 05/08/24 12:32 CSS (Rec: 05/08/24 14:38 CSS [id number]) E-signed By Joceline Dan OTR/L OT OP Ortho Eval Details Complexity Complexity Low Insurance Information Insurance Information Medicare B,[facility] Outpatient History/Precautions Current Condition/Medical Diagnosis Referring Provider Dr. Galloway Medical Diagnoses Z98.890- other specified postprocedural states (s/p tirgger finger release) Treatment Diagnosis pain in fingers(thumb included )- M79.644 Hand instability M25.341 Date of Onset 04/10/24 Other Precautions no activity restrictions or limitations per ortho MD. Medical Conditions Respiratory Medical/Functional History Medical History Reviewed Yes Prior Level of Function/Mobility Pt indep with ADLs/IADLs at baseline. Ortho Subjective Subjective Subjective Feels like progressing since surgery on 04/10/24 on R hand. Pt is L hand dominant. Pt had 2 prior cortizone shots in R hand. Pt reports she feels hands are weak and increased pain. Pt notes difficulty with using can hadoop engineer, closing zip loc bag, snaps on coat, or pulling pants up after going to bathroom. Pushing, pulling, gripping, and turning cause increased pain only in R hand. Pt reports weakness in B hands. Pt notes she has returned back to knitting but concerned she can over do it . Pt has goal to return to playing piano. Pain Assessment Pain Pain No Pain Comments R thumb: pain at rest: 0/10 pain with pressure or gripping : 2/10 pain(feels sharp) Range of Motion and Strength Wrist Range of Motion and Strength Wrist Range of Motion and Strength no ROM deficits in wrists Hand/Finger/Thumb Range of Motion and Strength Hand/Finger/Thumb Range of Motion and no ROM deficits in digits Strength Hand Pinch/Wood Tool Maker Strength Hand Pinch/Wood Tool Maker Strength Hand Pinch/Wood Tool Maker Strength Left Hand,Right Hand Left Hand Wood Tool Maker Strength Position 1 in Elbow 70 Flexion (lbs) Lateral Pinch Strength (lbs) 19 Tip Pinch Strength (lbs) 10 Right Hand Wood Tool Maker Strength Position 1 in Elbow 47 Flexion (lbs) Lateral Pinch Strength (lbs) 14 Dexterity Dexterity Dexterity Left Hand,Right Hand Left Hand Scoring Times 9-Hole Peg Hand Test Scoring Time ( 24 seconds) Right Hand Scoring Times 9-Hole Peg Hand Test Scoring Time ( 24 seconds) OT Problems Problems Problems Decreased Strength,Pain, Sensory Sensitivity,Gripping, Pinching Other Problems Opening Containers,Dressing, Fasteners Patient Potential Excellent Assessment Assessment Assessment Pt is a 78 year old female who is referred to OT after A1 valerio release on R thumb on 04/10/24. Pt currently is experiencing pain, increased sensitivity, and weakness which is impacting her ADLs/ IADLs. Pt would benefit from skilled OT work on pain management and strengthening to promote indep and return to prior level functional status . Occupational Therapy Treatment Plan - OP Potential Rehabilitation Potential Excellent Set Goals Goals Set with Patient Yes Goals Goals 1) Pt will verbalize and/or demonstrate ability to open/ close zip loc bags with R hand without difficulties. 2) Pt will increase R [employer] strength to 65# or more. 3) Pt will verbalize ability to knit with R hand with no difficulties. 4) Pt will note 0/10 pain with activity in R hand. Treatment Plan Treatment Plan Evaluation,Edema Control,Joint Mobilization,Manual Therapy, Ultrasound,Wound Care/Scar Management,Therapeutic Exercise,Therapeutic Activities,Self Care/Home Management,Education Expected Frequency 1x Week Expected Duration 8-10 Weeks Home Program Home Program Home Program Initiated Home Program Specifics 05/08: theraputty: [employer], acuna pinch, tip pinch, finger extension, and retrieving beads in putty; scar massage 2 -3x/day - let pain be guide. Certification Certification Statement I Certify That: Therapy Services Provided, Therapy Plan Established, Therapy Plan Reviewed Certification Information Clinic ID # [id number] Initial Certification Date 05/08/24 Recertification Due Date 07/17/24 Provider Signature Required Yes Provider Signature Shows Agreement With POC & Medical Necessity Physician NPI Number Write NPI# Here Physician Comment/Change Comment or Changes Physician Signature & Date Requested Please Sign/Date Here
== END 2024-06-18 14:23 | disposition home or self-care (01) ==
PROVIDERS: PCP Family Medicine; Visit Provider Orthopaedic Surgery
DX: Z98.890 Other specified postprocedural states (principal); Z51.89 Encounter for other specified aftercare
CPT/HCPCS: 97035; 97110; 97140; 97165; X5282

== ENCOUNTER 2024-08-28 14:53 | Outpatient (CLI) | payer MEDICAID, SELFPAY | END 2024-08-28 14:54 | disposition home or self-care (01) | PROVIDERS: PCP Family Medicine; Visit Provider Family Medicine | DX: R53.83 Other fatigue (principal); E55.9 Vitamin D deficiency, unspecified; M25.50 Pain in unspecified joint | CPT/HCPCS: 82306; 82607 ==

== ENCOUNTER 2024-10-01 10:28 | Outpatient (CLI) | payer MEDICARE, SELFPAY ==
--- NOTE | 2024-10-01 10:45 | CRLHL7_ITS ---
For Patients: As a result of the Century Cures Act, medical imaging exams and procedure reports are released immediately into your electronic medical record. You may view this report before your referring provider. If you have questions, please contact your health care provider. INDICATION: BILATERAL SCREENING MAMMOGRAM, ASYMPTOMATIC 78 Y/O FEMALE COMPARISON: 08/11/22, 09/25/20, 01/11/19 TECHNIQUE: CC and MLO views were obtained. These mammographic images have been obtained using full-field digital technique. These mammographic images were interpreted with the benefit of computer aided detection and tomosynthesis. BREAST COMPOSITION: There are scattered areas of fibroglandular density. FINDINGS: No suspicious findings. ASSESSMENT: BI-RADS 1 Negative RECOMMENDATION: Annual screening mammogram. A lay language report of this examination will be provided to the patient. Dictated by: Job Puckett MD @ 10/08/2024 09:20:11 (Electronically Signed)
== END 2024-10-01 10:29 | disposition home or self-care (01) ==
LOC: MAMMO 10:29
PROVIDERS: PCP Family Medicine; Visit Provider Family Medicine
DX: Z12.31 Encounter for screening mammogram for malignant neoplasm of breast (principal)
CPT/HCPCS: 77063; 77067

== ENCOUNTER 2024-10-22 09:15 | Outpatient (RCR) | payer MEDICARE, SELFPAY ==
--- NOTE | 2024-10-15 16:51 | PT.OPEX ---
PT [place] [facility] PT [facility] Outpatient Eval Start: 10/15/24 10:52 Freq: Status: Active Protocol: Document 10/15/24 10:52 BEN (Rec: 10/15/24 16:47 BEN [id number]) E-signed By Alina Pandey PT Physical Therapy Outpatient Evaluation Insurance Information Recert Due Date 01/12/25 Insurance Name [employer] Medical Diagnosis BILATERAL SHOULDER PAIN Treating Diagnosis RIGHT>LEFT BICEPS TENDINOSIS STIFFNESS WEAKNESS Referring MD VIRI SAUCEDO Subjective Preferred Name CADENCE Subjective CADENCE REPORTS IMPROVED SYMPTOMS SINCE SHE THE DOCTOR IN AUGUST AND WAS CONTEMPLATING CANCELING THE APPT. HOWEVER, SHE WANTS TO MAKE SURE SHE IS DOING WHATEVER SHE NEEDS TO DO TO KEEP HER SHOULDER HEALTHY AND SHE STILL HAS PAIN WHEN LIFTING HEAVY OBJECTS DESPITE KEEPING THEM CLOSE TO HER BODY SHE HAS BEEN TAUGHT. SHE REPORTS FRACTURING HER LEFT PROXIMAL HUMERUS 01/2023 AND WAS NON OP WEARING A SLING. SHE ATTENDED FORMAL THERAPY AND FELT THAT SHE WAS IN THE CLEAR FROM HAVING ANY ISSUES. SHE DESCRIBES THE ONSET WAS AT THE SAME TIME HER MD CHANGED HER ASTHMA MEDICATION AND CONTINUED TO WORSEN EA TIME SHE LIFTING OR REACHED OVERHEAD. SHE IS LEAVING FOR HER CABIN UP [place] AT THE END OF OCTOBER AND WILL ONLY HAVE ONE MORE VISIT. SHE WANTS TO LEARN WHAT EXERCISES THAT WILL HELP HER DEVELOP A PROGRAM TO HELP SHOULDER STAY IN GOOD WORKING ORDER Pain Comments 08/13 Date of Last Physician Visit 08/28/24 Current Work Status Retired Precautions Treatment Precautions/Contraindications PMHX: H/O TRAUMATIC PROXIMAL HUMERAL FX NON-OP Therapy Limitations/Systems Review Not Limited Objective Other/Pertinent Objective CERVICAL ROM WNL SHOULDER AROM WNL NECK/SHOULDER MMT: SHRUG 5 FLEX 5 EXT 5 ABD 5 IR 5 ER 5-* ELBOW: FLEX 5 EXT 5 SPECIAL TESTS: CERVICAL: SPURLINGS (-) CERVICAL DISTRACTION NEURAL TENSION (MEDIAN/ULNAR/ RADIAL) BAKODY SIGN CRLF MONICA IMPINGEMENT: VAUGHN-MICHELLE (-) NEER JOSE PAINFUL ARC (-) TENDONDITIS: SPEEDS (+) YERGASON'S JOBES (EMPTYCAN) (-) FULL CAN (-) LIFT OFF HORN BLOWER DROP ARM (-) LABRAL TEAR/INSTABILITY/AC SCARF TEST PAXIONO (-) APPREHENSION (-) BOYKIN'S : (-) JOINT MOBILITY/PALPATION: MIN HYPOMOBILITY ABOUT THE [facility] AND [facility], MIN FWD HEAD/ROUNDED SHOULDER POSTURING TX: UBE NEXT VISIT SNOW ISAAC X 15 SHOULDER ROW SHOULDER EXT SHOULDER ER SHOULDER IR PEC STRETCH BICEPS STRETCH Assessment Assessment/Impression PATIENT IS A 79Y[address] VIRI SAUCEDO TO EVAL AND TREAT BILATERAL SHOULDER PAIN . PATIENT DEMONSTRATES SIGNS AND SYMPTOMS CONSISTENT WITH BILATERAL SHOULDER PAIN CONTRIBUTING TO THEIR FUNCTIONAL IMPAIRMENTS OF REACHING OH, OUT TO SIDE, AND BEHIND BACK. PATIENT DESCRIBES THE FOLLOWING TRIGGERS CARRYING HEAVY OBJECTS, LIFTING HEAVY OBJECTS WHICH ARE ALLEVIATED BY REST . PATIENT HAS NOTABLE OBJECTIVE FINDING INCLUDING (+) SPEEDS, (+) EMPTY CAN, FULL AROM AND STRENGTH EXCEPT S'ER 5-/5 AND PAINFUL WHICH ALL ARE CONTRIBUTING TO THE CLINICAL IMPRESSION. PATIENT IS A GOOD CANDIDATE FOR SKILLED PHYSICAL THERAPY TO ADDRESS AFOREMENTIONED DEFICITS ABOVE IN ORDER TO RETURN TO HER ASYMPTOMATIC STATUS AND RETURN TO UNRESTRICTED MVMTS. INTERVENTION IS NECESSARY BY WAY OF THERAPEUTIC EXERCISE, MANUAL THERAPY, NEUROMUSCULAR RE-EDUCATION, STABILIZATION/ PROPRIOCEPTION, MODALITIES FOR SYMPTOM MGMT, PATIENT EDUCATION PLEASE REFER TO APPROPRIATE SECTION WITHIN THIS EVALUATION FOR COMPLETE LIST OF GOALS AND PLAN OF CARE . DISCHARGE PLAN AND CRITERIA IS FOR PATIENT TO ACHIEVE THE GOALS LISTED BELOW OR UNTIL MAX POTENTIAL MET. PATIENT VERBALIZED UNDERSTANDING AND AGREEABLE TO POC, FREQ, AND GOALS ESTABLISHED. Primary Functional Limitations REACHING OH, OUT TO SIDE AND BEHIND BACK; LIFTING / CARRYING HEAVY ITEMS Plan of Care Rehabilitation Potential Good Physical Therapy Goals IN 6-10 VISITS: 1. DECREASE SHOULDER PAIN TO < /2-3/10 WITH DAILY ACTIVITIES AND WITH THE PROGRESSION OF HER HEP OVER THE NEXT 4 WEEKS. 2. DEMONSTRATE PAIN FREE AROM OVER THE NEXT 4-6 WEEKS DURING DAILY ACTIVITIES WITHOUT FLARE UPS OF SYMPTOMS. 3. PATIENT WILL VERBALIZED UNDERSTANDING OF POSTURING AND BODY MECHANICS IT RELATES TO DECREASING STRESS, IMPROVED SHOULDER MECHANICS, AND DECREASED SYMPTOMS. 4.PATIENT WILL DEMONSTRATES IMPROVED STRENGTH TO FACILITATE RETURN TO DAILY ACTIVITIES WITH LESS SYMPTOMS AND DECREASED OPPORTUNITIES FOR FLARE UP OF PAIN 5. PATIENT WILL BE INDEPENDENT WITH HER INDIVIDUALIZED AND COMPREHENSIVE HEP WITHIN THE NEXT 6-8 WEEKS FOR PROGRESSION TWD ABOVE MENTION GOALS, CONTINUED MGMT OF SYMPTOMS, AND ONGOING SELF IMPROVEMENTS IN POSTURING/STRENGTH/ STABILIZATION. Frequency/Duration 1X/WK Patient Will Be Discharged From Therapy Completion of LTG(s), Independent w/HEP, Independently Progressing Evaluation Billing Untimed Code Treatment Minutes 20 PT Eval No Charge No Complexity Low Certification Information Initial Certification Date 10/15/24 Ending Certification Date 01/12/25 Provider Signature Required Yes Provider Signature Shows Agreement With POC & Medical Necessity Physician NPI Number Write NPI# Here Physician Comment/Change : Physician Signature & Date Requested Please Sign/Date Here
== END 2024-12-26 14:37 | disposition home or self-care (01) ==
PROVIDERS: PCP Family Medicine; Visit Provider Family Medicine
DX: M25.511 Pain in right shoulder (principal); M25.512 Pain in left shoulder; G89.29 Other chronic pain; Z51.89 Encounter for other specified aftercare
CPT/HCPCS: 97110; 97161